=== PATIENT | female | born 1970 | race Caucasian/White ===

== ENCOUNTER 2020-04-05 00:22 | Inpatient (IN) | payer BC ==
[2020-04-05] MEDS ORDERED: Fentanyl 100 MCG/2 ML VIAL ONE ×4 (00:30→18:01)
[2020-04-05] MEDS ORDERED: Lorazepam 2 MG/ML VIAL ONE (00:30)
[2020-04-05 01:05] LABS: #Basophils 0.1 thou/uL (0.0-0.2); #Eosinphils 0.2 thou/uL (0.0-0.7); #Lymphocytes 3.9 thou/uL (1.20-3.40); #Monocytes 1.2 thou/uL (0.11-0.59); #Neutrophils 14.2 thou/uL (1.40-6.50); %Basophils 0.4 % (0.0-1.0); %Eosinophils 1.1 % (0.0-10.0); %Lymphocytes 20.1 % (21.0-51.0); %Monocytes 6.2 % (0.0-10.0); %Neutrophils 72.2 % (42.0-75.0); Hemoglobin 14.9 g/dL (12.0-16.0); Mean Corpuscular HGB CONC 33.6 g/dL (32.0-36.0); Mean Corpuscular Hemoglobin 30.9 pg (27.0-31.0); Mean Platelet Volume 7.5 fL (7.4-10.4); Platelet Count 295 thou/uL (130-400); RBC Distribution Width 11.9 % (11.5-14.5); Red Blood Cell (RBC) Count 4.83 mill/uL (4.20-5.40); White Blood Cell (WBC) Count 19.6 thou/uL (4.8-10.8)
[2020-04-05 01:21] LABS: PTT 26.7 sec (22.9-36.1); Prothrombin Time 13.1 sec (12.0-14.7)
[2020-04-05 01:26] LABS: ALT (SGPT) 37 U/L (8-55); AST (SGOT) 43 U/L (5-34); Albumin 4.4 g/dL (3.5-5.0); Alkaline Phosphatase 71 U/L (40-110); Anion Gap 16 mmol/L (10-20); BUN (Urea Nitrogen) 16 mg/dL (7.0-18.7); Bilirubin, Total 0.4 mg/dL (0.2-1.2); Calc. Creatinine Clearance 0 mL/min (70-130); Carbon Dioxide 21 mmol/L (22-29); Chloride 106 mmol/L (98-107); Estimated GFR-MDRD 53; Globulin 2.8 g/dL (2.4-3.5); Glucose 110 mg/dL (70-105); Potassium 3.6 mmol/L (3.5-5.1); Protein, Total 7.2 g/dL (6.0-8.3); Sodium 139 mmol/L (136-145)
[2020-04-05] MEDS ORDERED: PROPOFOL 20 ML ONE (02:09)
[2020-04-05 03:53] LABS: Lactic Acid 3.1 mmol/L (0.5-2.2)
[2020-04-05 03:55] LABS: Phosphorus 1.6 mg/dL (2.3-4.7)
[2020-04-05] MEDS ORDERED: Ondansetron PF 4 MG/2 ML Vial IVP PRN (04:05)
[2020-04-05] MEDS ORDERED: Dextrose 5% in Water 1,000 ML IV PRN (04:05)
[2020-04-05] MEDS ORDERED: Dextrose 50% Abboject 50 ML SYRINGE SLOW IVP PRN (04:05)
[2020-04-05] MEDS ORDERED: traMADol HCl 50 MG TAB PO PRN (04:13)
[2020-04-05] MEDS ORDERED: Lorazepam 2 MG/ML VIAL SLOW IVP PRN ×2 (04:20→23:32)
[2020-04-05] MEDS ORDERED: Sodium Chloride 0.9% 1,000 ML IV SCH (04:30)
[2020-04-05] MEDS ORDERED: Potassium Phosphate 30 MMOL in Sodium Chloride 0.9% 250 ML 250 ML IVPB SCH (04:30)
[2020-04-05] MEDS ORDERED: Boostrix 0.5 ML (Tdap) VIAL ONE (04:52)
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
[2020-04-05 07:42] VITALS: BMI 34.8
[2020-04-05] MEDS: Morphine 4 MG/ML VIAL SLOW IVP PRN ×2 (07:45→19:40)
[2020-04-05] MEDS ORDERED: Clindamycin/D5W 900 MG in Premix Bag 1 BAG IVPB SCH (08:15)
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
[2020-04-05] MEDS ORDERED: Ketorolac Tromethamine 30 MG/ML VIAL ONE (09:25)
[2020-04-05] MEDS ORDERED: Lidocaine 1% PF 5 ML VIAL ONE (09:25)
[2020-04-05] MEDS ORDERED: Dexamethasone 20 MG/5 ML VIAL ONE (09:25)
[2020-04-05] MEDS ORDERED: Ondansetron PF 4 MG/2 ML Vial ONE (09:25)
[2020-04-05] MEDS ORDERED: PROPOFOL 200 MG/20 ML VIAL ONE (09:25)
[2020-04-05] MEDS ORDERED: Iopamidol-370 76% 500 ML 1 ML ONE (09:44)
[2020-04-05] MEDS: Gabapentin 300 MG CAP PO SCH ×3 (10:43→19:38)
[2020-04-05] MEDS: Bacitracin 1 PK TOP SCH ×3 (10:43→19:39)
[2020-04-05] MEDS: Famotidine 20 MG TAB PO SCH ×2 (10:43→19:37)
[2020-04-05] MEDS: Polyethylene Glycol 3350 17 GM Packet PO SCH (10:44)
[2020-04-05] MEDS: Senokot S 8.6-50 MG TAB PO SCH ×2 (10:44→19:37)
[2020-04-05] MEDS: Acetaminophen 500 MG TAB PO SCH ×4 (10:45→19:39)
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
[2020-04-05] MEDS: Ibuprofen 200 MG TAB PO SCH ×3 (12:09→21:50)
[2020-04-05] MEDS: Sodium Chloride 0.9% 1,000 ML IV SCH ×2 (12:09→19:42)
[2020-04-05] MEDS ORDERED: Midazolam HCl 2 mg/2 ml Vial ONE ×2 (12:36→15:01)
[2020-04-05] MEDS ORDERED: Levofloxacin 500 mg/D5W 100 ml Premix Bag ONE (12:36)
[2020-04-05] MEDS ORDERED: AFRIN NASAL MIST 15 ML BOT ONE (12:36)
[2020-04-05] MEDS ORDERED: Clindamycin/D5W 900 mg/50 ml Premix Bag ONE (14:00)
[2020-04-05] MEDS ORDERED: Morphine 4 MG/ML VIAL ONE (14:00)
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
[2020-04-05] MEDS ORDERED: Bupivacaine 0.25% HCL 30 ML VIAL ONE (15:31)
[2020-04-05] MEDS ORDERED: Promethazine HCl 25 MG/ML VIAL IM PRN (17:33)
[2020-04-05] MEDS ORDERED: Promethazine HCl 25 MG/ML VIAL SLOW IVP PRN (17:33)
[2020-04-05] MEDS ORDERED: Ondansetron HCl/PF 4 MG/2 ML Vial IVP PRN (17:33)
[2020-04-05 19:33] LABS: SARS-CoV-2 MS2 Positive; SARS-CoV-2 N Gene Negative; SARS-CoV-2 S Gene Negative; SARS-CoV-2 by NAA Not Detected (NotDetected); SARS-CoV-2 orf1ab Negative
[2020-04-05] MEDS: Cyclobenzaprine 10 MG TAB PO PRN (21:50)
[2020-04-05] MEDS: Clindamycin/D5W 900 MG in Premix Bag 1 BAG IVPB SCH (21:54)
--- NOTE | 2020-04-05 22:36 | RAD ---
XR Wrist Lt 2 View HISTORY: Left distal radial fracture COMPARISON: 04/05/2020 at 12:41 AM FINDINGS: 2 spot fluoroscopic intraoperative images of the left wrist demonstrate interval reduction and music intern al fixation of the distal radial fracture plate and screws. An external pin is also present.
[2020-04-05 23:55] LABS: Bacteria/HPF None Seen HPF (None Seen); Bilirubin Negative (Negative); Blood, Urine 1+ (Negative); Clarity Extra Turbid (Clear); Glucose, Urine (Dipstick) Normal (Negative); Ketone, Urine Negative (Negative); Leukocyte Negative Leu/uL (Negative); Nitrite Negative (Negative); Protein, Urine (Dipstick) 20 mg/dL (Neg-Trace); Specific Gravity, Urine 1.047 (1.002-1.036); Squamous Epithelial 0-3 HPF (0-3); Urobilinogen Normal mg/dL (Less than 2); WBC/HPF 0-3 HPF (0-3); pH, Urine 5.5 (5.0-9.0)
[2020-04-05 23:57] LABS: Cocaine Metabolite Screen Not Detected (NotDetected); Medtox Reader # READER 4; Methamphetamine Not Detected (NotDetected); Phencyclidine (PCP) Not Detected (NotDetected); THC/Cannabinoid Screen Not Detected (NotDetected)
[2020-04-05 23:58] LABS: Amphetamine Not Detected (NotDetected); Barbiturates Screen Not Detected (NotDetected); Benzodiazepine Screen Detected (NotDetected); Medtox Control Line Valid? VALID (VALID); Methadone Not Detected (NotDetected); Opiate Screen Detected (NotDetected); Oxycodone Screen Not Detected (NotDetected); Tricyclic Screen Not Detected (NotDetected); Urine Culture Reflex No No
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
[2020-04-06 03:56] LABS: Anion Gap 15 mmol/L (10-20); BUN (Urea Nitrogen) 16 mg/dL (7.0-18.7); Calc. Creatinine Clearance 99 mL/min (70-130); Calcium 7.7 mg/dL (7.8-10.44); Carbon Dioxide 20 mmol/L (22-29); Chloride 107 mmol/L (98-107); Estimated GFR-MDRD 63; Glucose 137 mg/dL (70-105); Phosphorus 3.2 mg/dL (2.3-4.7); Potassium 4.6 mmol/L (3.5-5.1); Sodium 137 mmol/L (136-145)
[2020-04-06] MEDS: Acetaminophen 500 MG TAB PO SCH ×4 (04:17→21:55)
[2020-04-06] MEDS: Sodium Chloride 0.9% 1,000 ML IV SCH (04:18)
[2020-04-06] MEDS: Clindamycin/D5W 900 MG in Premix Bag 1 BAG IVPB SCH (05:11)
[2020-04-06] MEDS: Ibuprofen 200 MG TAB PO SCH ×3 (05:13→21:55)
[2020-04-06 05:15] LABS: Band 23 % (5-11); Lymphocytes 9 % (21-51); MDiff Complete? YES; Mean Corpuscular HGB CONC 33.4 g/dL (32.0-36.0); Mean Corpuscular Hemoglobin 31.3 pg (27.0-31.0); Mean Corpuscular Volume 93.7 fL (78.0-98.0); Mean Platelet Volume 7.7 fL (7.4-10.4); Monocytes 7 % (0-10); Neutrophil 61 % (42-75); Platelet Count 231 thou/uL (130-400); RBC Distribution Width 11.9 % (11.5-14.5); Red Blood Cell (RBC) Count 4.14 mill/uL (4.20-5.40); White Blood Cell (WBC) Count 17.5 thou/uL (4.8-10.8)
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
[2020-04-06] MEDS: Bacitracin 1 PK TOP SCH ×3 (10:27→21:56)
[2020-04-06] MEDS: Gabapentin 300 MG CAP PO SCH ×3 (10:27→21:55)
[2020-04-06] MEDS: Famotidine 20 MG TAB PO SCH ×2 (10:27→21:54)
[2020-04-06] MEDS: Polyethylene Glycol 3350 17 GM Packet PO SCH (10:28)
[2020-04-06] MEDS: Senokot S 8.6-50 MG TAB PO SCH ×2 (10:36→21:55)
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
[2020-04-06] MEDS: Cyclobenzaprine 10 MG TAB PO PRN (17:50)
[2020-04-06] MEDS: traMADol HCl 50 MG TAB PO PRN (17:50)
[2020-04-06] MEDS: Enoxaparin Sodium 30 MG/0.3 ML SYRINGE SC SCH (21:56)
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
[2020-04-07] MEDS: Acetaminophen 500 MG TAB PO SCH (05:24)
[2020-04-07] MEDS: Ibuprofen 200 MG TAB PO SCH ×3 (05:25→20:36)
[2020-04-07] MEDS: traMADol HCl 50 MG TAB PO PRN (05:25)
[2020-04-07 05:30] LABS: #Eosinphils 0.1 thou/uL (0.0-0.7); #Lymphocytes 2.2 thou/uL (1.20-3.40); #Monocytes 0.9 thou/uL (0.11-0.59); %Basophils 0.4 % (0.0-1.0); %Eosinophils 1.6 % (0.0-10.0); %Lymphocytes 26.3 % (21.0-51.0); %Monocytes 11.3 % (0.0-10.0); %Neutrophils 60.4 % (42.0-75.0); Hemoglobin 11.2 g/dL (12.0-16.0); Mean Corpuscular HGB CONC 33.3 g/dL (32.0-36.0); Mean Corpuscular Hemoglobin 31.2 pg (27.0-31.0); Mean Corpuscular Volume 93.5 fL (78.0-98.0); Platelet Count 202 thou/uL (130-400); Red Blood Cell (RBC) Count 3.59 mill/uL (4.20-5.40); White Blood Cell (WBC) Count 8.3 thou/uL (4.8-10.8)
[2020-04-07] MEDS: Cyclobenzaprine 10 MG TAB PO PRN ×3 (06:14→22:44)
[2020-04-07] MEDS: Polyethylene Glycol 3350 17 GM Packet PO SCH (09:48)
[2020-04-07] MEDS: Enoxaparin Sodium 30 MG/0.3 ML SYRINGE SC SCH ×2 (09:48→20:37)
[2020-04-07] MEDS: Bacitracin 1 PK TOP SCH ×3 (09:48→20:39)
[2020-04-07] MEDS: Bupropion 150 MG SR TAB PO SCH (09:48)
[2020-04-07] MEDS: Famotidine 20 MG TAB PO SCH ×2 (09:49→20:36)
[2020-04-07] MEDS: Senokot S 8.6-50 MG TAB PO SCH ×2 (09:49→20:36)
[2020-04-07] MEDS: Gabapentin 300 MG CAP PO SCH ×3 (09:49→20:37)
[2020-04-07] MEDS: Acetaminophen 325 MG TAB PO SCH ×3 (09:53→20:37)
[2020-04-07] MEDS: Losartan 25 MG TAB PO SCH (10:04)
[2020-04-07] MEDS: Acetaminophen/Codeine 30-300mg Tablet PO SCH ×3 (11:29→23:36)
[2020-04-07] MEDS: Acetaminophen/Codeine 30-300mg Tablet PO PRN ×3 (11:31→23:36)
[2020-04-07] MEDS ORDERED: Scopolamine 1.5 mg/72 hour Patch TD SCH (14:00)
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
[2020-04-08] MEDS: Acetaminophen 325 MG TAB PO SCH ×2 (03:26→09:52)
[2020-04-08] MEDS: Acetaminophen/Codeine 30-300mg Tablet PO SCH ×4 (05:58→21:34)
[2020-04-08] MEDS: Ibuprofen 200 MG TAB PO SCH ×3 (05:58→21:34)
[2020-04-08] MEDS: Acetaminophen/Codeine 30-300mg Tablet PO PRN ×2 (05:59→12:34)
[2020-04-08] MEDS: Famotidine 20 MG TAB PO SCH ×2 (09:51→21:35)
[2020-04-08] MEDS: Polyethylene Glycol 3350 17 GM Packet PO SCH (09:51)
[2020-04-08] MEDS: Bupropion 150 MG SR TAB PO SCH (09:51)
[2020-04-08] MEDS: Gabapentin 300 MG CAP PO SCH ×3 (09:51→21:34)
[2020-04-08] MEDS: Bacitracin 1 PK TOP SCH ×3 (09:51→21:35)
[2020-04-08] MEDS: Losartan 25 MG TAB PO SCH (09:52)
[2020-04-08] MEDS: Senokot S 8.6-50 MG TAB PO SCH ×2 (09:52→21:33)
[2020-04-08] MEDS: Enoxaparin Sodium 30 MG/0.3 ML SYRINGE SC SCH ×2 (09:54→21:35)
[2020-04-08] MEDS: Lorazepam 1 MG TAB PO PRN (18:15)
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
[2020-04-09] MEDS: Milk Of Magnesia 30 ML UDCUP PO SCH ×3 (00:30→11:13)
[2020-04-09] MEDS: Acetaminophen/Codeine 30-300mg Tablet PO SCH ×4 (00:31→13:40)
[2020-04-09] MEDS: Lorazepam 1 MG TAB PO PRN (05:31)
[2020-04-09] MEDS: Ibuprofen 200 MG TAB PO SCH ×2 (05:31→13:40)
[2020-04-09] MEDS: Losartan 25 MG TAB PO SCH (08:34)
[2020-04-09] MEDS: Bacitracin 1 PK TOP SCH ×2 (08:35→15:08)
[2020-04-09] MEDS: Famotidine 20 MG TAB PO SCH (08:35)
[2020-04-09] MEDS: Senokot S 8.6-50 MG TAB PO SCH (08:35)
[2020-04-09] MEDS: Gabapentin 300 MG CAP PO SCH ×2 (08:36→15:07)
[2020-04-09] MEDS: Bupropion 150 MG SR TAB PO SCH (08:36)
[2020-04-09] MEDS: Enoxaparin Sodium 30 MG/0.3 ML SYRINGE SC SCH (08:37)
[2020-04-09] MEDS: Polyethylene Glycol 3350 17 GM Packet PO SCH (08:37)
[2020-04-09] MEDS ORDERED: Bisacodyl 10 MG SUPP PR SCH (09:00)
[2020-04-09 16:26] VITALS: BP 177/95; TEMP 97.4
== END 2020-04-09 17:00 | disposition home or self-care (01) | DRG 511 ==
LOC: ERS 00:22 → ERHOLD 04:14 → IMCU/EMU 06:57 → SJJU 04-06 17:41 → IMCU/EMU 04-06 22:33 → SJJU 04-06 22:43
PROVIDERS: ADMIT Specialist; ATTEND Specialist
PROC: 0PSJ04Z Reposition Left Radius with Internal Fixation Device, Open Approach (ICD-10-PCS; principal; 2020-04-05)
PROC: 0RSJXZZ Reposition Right Shoulder Joint, External Approach (ICD-10-PCS; 2020-04-05)
PROC: 3E0234Z Introduction of Serum, Toxoid and Vaccine into Muscle, Percutaneous Approach (ICD-10-PCS; 2020-04-05)
DX: S52.502A Unspecified fracture of the lower end of left radius, initial encounter for closed fracture (principal); S06.0X9A Concussion with loss of consciousness of unspecified duration, initial encounter; Z20.828 Contact with and (suspected) exposure to other viral communicable diseases; I10 Essential (primary) hypertension; F41.0 Panic disorder [episodic paroxysmal anxiety]; S43.004A Unspecified dislocation of right shoulder joint, initial encounter; F10.129 Alcohol abuse with intoxication, unspecified; S52.252A Displaced comminuted fracture of shaft of ulna, left arm, initial encounter for closed fracture; R20.2 Paresthesia of skin; S31.109A Unspecified open wound of abdominal wall, unspecified quadrant without penetration into peritoneal cavity, initial encounter; S91.302A Unspecified open wound, left foot, initial encounter; S91.301A Unspecified open wound, right foot, initial encounter; S81.801A Unspecified open wound, right lower leg, initial encounter; Y90.4 Blood alcohol level of 80-99 mg/100 ml; S51.801A Unspecified open wound of right forearm, initial encounter; Z23 Encounter for immunization; Z90.49 Acquired absence of other specified parts of digestive tract; Z88.0 Allergy status to penicillin; Z88.2 Allergy status to sulfonamides; V86.69XA Passenger of other special all-terrain or other off-road motor vehicle injured in nontraffic accident, initial encounter; Z94.9 Transplanted organ and tissue status, unspecified; Z79.899 Other long term (current) drug therapy
CPT/HCPCS: 23650; 36415; 70450; 71045; 71260; 72125; 72141; 74177; 76000; 80048; 80053; 80306; 80307; 81001; 82550; 83605; 83735; 84100; 85025; 85610; 85730; 87635; 90715; 99152; C1713; J1100; J1650; J1885; J1956; J2060; J2250; J2270; J2405; J2704; J3010; J3490; J7050; Q9967; S0020; U0003